=== PATIENT | male | born 1985 | race Caucasian/White ===

== ENCOUNTER 2020-01-25 07:37 | Outpatient (REF) | payer BC, SELFPAY ==
--- NOTE | 2020-01-25 07:50 | XR_ITS ---
EXAMINATION: XR ANKLE, RIGHT CLINICAL INFORMATION: Pain COMPARISON: None TECHNIQUE: AP, lateral, and mortise views of the right ankle. FINDINGS: Bone alignment is normal. No fracture or dislocation is seen. The ankle mortise is normal. There may be an ankle joint effusion. Soft tissues are otherwise unremarkable. XR/XR ankle RT min 3V IMPRESSION: Question ankle joint effusion otherwise unremarkable exam.
[2020-01-25 08:26] LABS: Estimated Average Glucose 97 mg/dL
[2020-01-25 09:28] LABS: Vitamin B12 214 pg/mL (200-900)
== END 2020-01-25 07:38 | disposition home or self-care (01) ==
LOC: HO.LAB 07:37
PROVIDERS: Visit Provider Internal Medicine
DX: R73.02 Impaired glucose tolerance (oral) (principal); M25.571 Pain in right ankle and joints of right foot; E53.8 Deficiency of other specified B group vitamins
CPT/HCPCS: 73610; 82607; 83036; 84550

== ENCOUNTER 2020-01-31 08:03 | Outpatient (REF) | payer BC, SELFPAY | END 2020-01-31 08:04 | disposition home or self-care (01) | LOC: HO.HMGCLDS 08:03 | PROVIDERS: PCP Internal Medicine; Visit Provider Internal Medicine | DX: Z20.828 Contact with and (suspected) exposure to other viral communicable diseases (principal) | CPT/HCPCS: C9803; U0003 ==

== ENCOUNTER 2020-02-14 09:10 | Outpatient (REF) | payer BC, SELFPAY | END 2020-02-14 09:11 | disposition home or self-care (01) | LOC: HO.HMGCLDS 09:10 | PROVIDERS: PCP Internal Medicine; Visit Provider Internal Medicine | DX: Z20.828 Contact with and (suspected) exposure to other viral communicable diseases (principal) | CPT/HCPCS: C9803; U0003 ==

== ENCOUNTER 2022-10-22 05:57 | Day surgery (SDC) | payer BC, SELFPAY ==
[2022-10-22] VITALS (9 sets, daily range): BP systolic 97–126; BP diastolic 50–78; PULSE 57–84; RESP 14–18; TEMP 36.3–36.7; O2SAT 96–100; BMI 25.6
--- NOTE | ~2022-10-22 | CT_ITS ---
EXAMINATION: CT ABDOMEN AND PELVIS WITH CONTRAST CLINICAL INFORMATION: Lower abdominal pain. COMPARISON: None available. TECHNIQUE: Multidetector volumetric images were obtained from the superior aspect of the liver through the pubic symphysis following administration 85 mL of Omnipaque 350 intravenous contrast. Sagittal and coronal reformatted images were obtained on the technologist's workstation. Oral contrast: No This CT examination was performed using dose optimization techniques as appropriate, variously including the following: *Automated exposure control *Adjustment of mA and/or kV according to patient size (this includes techniques or standardized protocols for targeted exams where dose is matched to indication/reason for exam; i.e. extremities or head) *Use of iterative reconstruction technique DLP: 537 mGy-cm FINDINGS: LUNG BASES: No pleural or pericardial effusion. LIVER, GALLBLADDER, AND BILIARY TREE: The liver is normal in size and contour. 1.6 cm hepatic cyst. No biliary ductal dilatation is present. The gallbladder is unremarkable with no evidence of radiopaque gallstones, gallbladder wall thickening, or obvious pericholecystic inflammatory changes. PANCREAS: No ductal dilatation. SPLEEN: Not enlarged. ADRENAL GLANDS: No adrenal masses. KIDNEYS AND URETERS: The kidneys are symmetric in size and enhancement. No hydronephrosis or perinephric stranding. BLADDER: Underdistended with perivesicular stranding. GASTROINTESTINAL TRACT: The appendix is dilated up to 10 mm. There is mild periappendiceal stranding. There is appendiceal wall thickening. A possible appendicolith is present. ABDOMINAL WALL: No significant hernia is appreciated. LYMPH NODES: No bulky abdominal or pelvic lymphadenopathy. VASCULAR: Normal caliber abdominal aorta. PELVIC VISCERA: The prostate gland and seminal vesicles are unremarkable. OSSEOUS STRUCTURES: No destructive bone lesions. CT/CT abdomen pelvis w IV con IMPRESSION: Findings most likely representing acute appendicitis. Surgical consultation is recommended. Perivesicular stranding. Advise correlation with urinalysis. Findings were reviewed and discussed with ROSAMARIA Varner at 8:45 AM on 10/22/2022.
[2022-10-22 06:20] LABS: MANUAL DIFF FLAG NO
[2022-10-22 06:21] LABS: Basophils Percent Auto 0.4 % (0-2); Eosinophils Percent Auto 0.3 % (0-4); Hemoglobin 14.7 g/dl (14.0-18.0); Imm Gran Abs Auto 0.03 X10*3/uL (0.00-0.03); Imm Gran Pct Auto 0.3 % (0.0-0.4); Lymphocytes Absolute Auto 1.1 X10*3/uL (1.2-4.9); Lymphocytes Percent Auto 11.3 % (20-40); Mean Corpuscular Hemoglobin 31.7 pg (27.0-33.0); Mean Corpuscular Volume 90.5 fL (80.0-98.0); Mean Platelet Volume 9.8 fL (9.4-12.4); Monocytes Absolute Auto 0.5 X10*3/uL (0.1-1.2); Neutrophils Absolute Auto 8.1 x10*3/uL (2.0-8.3); Neutrophils Percent Auto 82.7 % (45-73); Platelet Count 203 X10*3/uL (160-400); Red Blood Count 4.64 X10*6/uL (4.60-5.80); Red Cell Distribution Width 12.1 % (11.0-16.0); White Blood Count 9.7 X10*3/uL (4.8-10.8)
[2022-10-22 06:23] LABS: Appearance Urine Clear; Color Urine Yellow; Glucose Urine UA Negative (Negative); Leukocyte Esterase Urine Negative (Negative); Nitrite Urine Negative (Negative); PH 5.5 (5.0-9.0); Specific Gravity - Urine >= 1.030 (1.005-1.025); Urine Blood Negative (Negative); Urine Ketones Trace mg/dL (Negative); Urine Protein Negative (Neg-Trace)
[2022-10-22 06:36] LABS: Bacteria Urine None Seen (None Seen); Granular Casts Urine Present; RBC Urine 0-2 /HPF (0-2); Squamous Epithelial Cell Urine 0-2 /HPF (0-2); WBC Urine 0-5 /HPF (0-5)
[2022-10-22 06:37] LABS: Alanine Aminotransferase 39 U/L (0-40); Albumin Level 4.4 g/dL (3.5-5.0); Alkaline Phosphatase 81 U/L (39-117); Anion Gap 16 (12-20); Aspartate Amino Transferase 27 U/L (5-37); Bilirubin Direct 0.2 mg/dL (0.0-0.5); Bilirubin Total 0.5 mg/dL (0.0-1.0); Blood Urea Nitrogen 11 mg/dL (9-16); Calcium 9.4 mg/dL (8.4-10.2); Carbon Dioxide 22 mmol/L (22-29); Chloride 101 mmol/L (96-108); Creatinine Clr Calc Pharmacy 105.8; Estimated Glomerular Filt Rate > 60; Glucose Random 138 mg/dL (60-115); Lipase 10 U/L (8-78); Potassium 4.2 mmol/L (3.3-5.1); Sodium 135 mmol/L (135-145); Total Protein 7.5 g/dL (6.5-8.0)
--- NOTE | 2022-10-22 06:43 | ED.ABDPAIN ---
HPI - Abdominal Pain General Chief Complaint: Abdominal Pain Stated Complaint: severe abd pain Time Seen by Provider: 10/22/22 06:40 Source: patient Mode of arrival: ambulatory Limitations: no limitations History of Present Illness HPI narrative: 37-year-old male with no significant past medical history presents to the ED today with a complaint of N/V, bilateral lower abdominal pain and feeling bloated since 0700 last night, abdominal pain worse on the right. Endorses 2 episodes of nonbloody vomiting last night. States his pain is currently a 6/10. Last bowel movement was yesterday afternoon, loose stool. Patient tells me he has no appetite. Has not had these symptoms before. Denies sick contacts or history of abdominal surgeries. Denies fever, chills, melena, hematemesis, hematochezia, or urinary symptoms. Related Data Home Medications Medication Instructions Recorded Confirmed No Known Home Meds 05/28/21 05/28/21 Allergies Allergy/AdvReac Type Severity Reaction Status Date / Time amoxicillin Allergy Unknown hives Verified 10/22/22 06:05 penicillin V Allergy Unknown hives Verified 10/22/22 06:05 Review of Systems Review of Systems Constitutional : No Weight loss, No Fever, No Chills, No Fatigue ENT/Mouth : No sore throat, No Rhinorrhea Eyes: No Eye Pain, No Swelling, No Redness Cardiovascular : No Chest Pain, No SOB Respiratory : No Cough, No Sputum, No Wheezing Gastrointestinal : + Nausea, + Vomiting, + Diarrhea, No Constipation, + abdominal Pain, No Hematochezia, No Melena Genitourinary : No Dysuria, No Urinary Frequency, No Hematuria, Musculoskeletal : No joint pain, No Myalgias, No Joint Swelling Skin : No Skin Lesions, No rash Neuro : No Weakness, No Numbness, No Dizziness, No Headache All other systems reviewed and are negative Yes all other systems are reviewed and are negative [facility] Past Medical History Attestation statement: The following information was validated with the patient. Source: old records reviewed and nursing notes reviewed Medical History Deafness in right ear Leukopenia Surgical History History of removal of cyst Family History Family History Father Bladder cancer Depression Mother Crohn disease Maternal Grandfather COPD (chronic obstructive pulmonary disease) Maternal Grandmother Cancer Maternal Uncle Crohn disease Bicuspid aortic valve Brother In good health Son No problems noted. Son In good health Paternal Uncle Alcohol abuse Social History Social History Housing: Apartment Alcohol intake: current Alcohol intake frequency: a few times a month Alcohol type: beer Patient Tobacco Use Status: Never used Tobacco e-Cigarette/Vaping Use: Never Used Second Hand Smoke Exposure: No Advance Directives: No Advance Directives Information Provided: Yes Current occupational status: employed Physical Exam ED Vital Signs: Vital Signs - 24 hr 10/22/22 06:05 10/22/22 08:35 Temperature 97.8 F Pulse Rate 68 57 Respiratory Rate 17 17 Blood Pressure 126/78 112/60 Pulse Oximetry 96 99 Oxygen Delivery Method Room Air Room Air BMI result Body Mass Index 25.6 Appearance: Alert.? Oriented X3.? No acute distress.? Head: Normocephalic, atraumatic, no step-offs or deformities CVS: Normal heart rate and rhythm.? Pulses normal.? Respiratory: No respiratory distress.? Breath sounds normal.? Abdomen: Soft, nondistended, bilateral lower quadrants tender to palpation R>L, normal active bowel sounds throughout Skin: Skin warm and dry.? Normal skin color.? Normal skin turgor.? Extremities: No lower extremity edema.? No calf ttp. 5/5 strength to bilateral upper and lower extremities Back: No midline tenderness, no C-spine tenderness, full range of motion, no CVA tenderness bilaterally Neuro: Oriented X 3.? No motor deficit.? No sensory deficit. CN 2-12 intact Course Reevaluation(s) Reevaluation #1: CBC without leukocytosis. CMP unremarkable with normal lipase, unlikely pancreatitis, LFTs within normal limits. CT of the abdomen representing acute appendicitis. Surgical consult recommended, reached out surgeon on-call Dr. Greer. Perivesicular stranding, correlation with urinalysis recommended, urine pending. Time: 08:56 Reevaluation #2: UA without infection. Dr. Greer surgery here at the bedside to evaluate patient. Time: 09:39 Reevaluation #3: Dr. Greer surgery saw patient recommends antibiotics. Patient has an allergy to penicillins however he tells me that last time he had penicillin was a while ago and he just had a rash, no airway complaints. Will order ceftriaxone due to low cross sensitivity. Time: 09:51 Medical Decision Making Medical Decision Making [facility] Narrative: 37-year-old male with no significant past medical history presents to the ED today with a complaint of N/V, bilateral lower abdominal pain and feeling bloated since 0700 last night. Exam: lower abd tenderness R>L Plan: labs, CVT abd pelvis, pain control Clinical concern for intra-abdominal pathology, plan to order CT of the abdomen/pelvis to rule out appendicitis, small-bowel obstruction, IBS. Other differentials include cholecystitis, pancreatitis, gastritis, gastroenteritis an IBS although less likely. No signs of acute abdomen. Differential Diagnosis Differential Diagnoses: The differential diagnosis associated with the presentation includes Appendicitis, small-bowel obstruction, cholecystitis, pancreatitis, gastritis, gastroenteritis, IBS Admission/Observation Consideration of admission/observation: Escalation of care including admission/observation considered possible Consult Healthcare Provider Management of the patient was discussed with: [employer] Supervisor (surgery ) Lab Data MDM Lab Attestation statement: I reviewed the patient's lab results. CBC without leukocytosis or anemia. CMP with normal renal and liver function, no electrolyte derangements. 10/22/22 06:14 10/22/22 06:14 Labs: Lab Results 10/22/22 10/22/22 10/22/22 Range/Units 06:14 06:14 06:14 WBC 9.7 (4.8-10.8) X10*3/uL RBC 4.64 (4.60-5.80) X10*6/uL Hgb 14.7 (14.0-18.0) g/dl Hct 42.0 (42.0-52.0) % MCV 90.5 (80.0-98.0) fL MCH 31.7 (27.0-33.0) pg MCHC 35.0 (31.0-36.0) g/dl RDW 12.1 (11.0-16.0) % Plt Count 203 (160-400) X10*3/uL MPV 9.8 (9.4-12.4) fL Immature Gran % (Auto) 0.3 (0.0-0.4) % Neut % (Auto) 82.7 H (45-73) % Lymph % (Auto) 11.3 L (20-40) % [place] % (Auto) 5.0 (2-11) % Eos % (Auto) 0.3 (0-4) % Baso % (Auto) 0.4 (0-2) % Lymph # (Auto) 1.1 L (1.2-4.9) X10*3/uL [place] # (Auto) 0.5 (0.1-1.2) X10*3/uL Eos # (Auto) 0.0 (0.0-0.4) X10*3/uL Baso # (Auto) 0.0 (0.0-0.2) X10*3/uL Abs Immat Gran (auto) 0.03 (0.00-0.03) X10*3/uL Absolute Neuts (auto) 8.1 (2.0-8.3) x10*3/uL Absolute Nucleated RBC 0.000 (0.0-0.012) X10*3/uL Nucleated RBC % (auto) 0.0 (0.0-0.2) /100WBC PT (11.1-13.3) SEC INR (0.9-1.1) Sodium 135 (135-145) mmol/L Potassium 4.2 (3.3-5.1) mmol/L Chloride 101 (96-108) mmol/L Carbon Dioxide 22 (22-29) mmol/L Anion Gap 16 (12-20) BUN 11 (9-16) mg/dL Creatinine 1.15 (0.5-1.4) mg/dL Estim Creat Clear Calc 105.8 Estimated GFR > 60 Random Glucose 138 H (60-115) mg/dL Calcium 9.4 (8.4-10.2) mg/dL Total Bilirubin 0.5 (0.0-1.0) mg/dL Direct Bilirubin 0.2 (0.0-0.5) mg/dL AST 27 (5-37) U/L ALT 39 (0-40) U/L Alkaline Phosphatase 81 (39-117) U/L Total Protein 7.5 (6.5-8.0) g/dL Albumin 4.4 (3.5-5.0) g/dL Lipase 10 (8-78) U/L Urine Color Yellow Urine Appearance Clear Urine pH 5.5 (5.0-9.0) Ur Specific [place] >= 1.030 H (1.005-1.025) Urine Protein Negative (Neg-Trace) mg/dL Urine Glucose (UA) Negative (Negative) mg/dL Urine Ketones Trace (Negative) mg/dL Urine Blood Negative (Negative) Urine Nitrite Negative (Negative) Ur Leukocyte Esterase Negative (Negative) Urine RBC 0-2 (0-2) /HPF Urine WBC 0-5 (0-5) /HPF Ur Squamous Epith Cells 0-2 (0-2) /HPF Urine Bacteria None Seen (None Seen) Hyaline Casts 11-20 (0-2) /LPF Granular Casts Present 10/22/22 10/22/22 Range/Units 09:12 09:20 WBC (4.8-10.8) X10*3/uL RBC (4.60-5.80) X10*6/uL Hgb (14.0-18.0) g/dl Hct (42.0-52.0) % MCV (80.0-98.0) fL MCH (27.0-33.0) pg MCHC (31.0-36.0) g/dl RDW (11.0-16.0) % Plt Count (160-400) X10*3/uL MPV (9.4-12.4) fL Immature Gran % (Auto) (0.0-0.4) % Neut % (Auto) (45-73) % Lymph % (Auto) (20-40) % [place] % (Auto) (2-11) % Eos % (Auto) (0-4) % Baso % (Auto) (0-2) % Lymph # (Auto) (1.2-4.9) X10*3/uL [place] # (Auto) (0.1-1.2) X10*3/uL Eos # (Auto) (0.0-0.4) X10*3/uL Baso # (Auto) (0.0-0.2) X10*3/uL Abs Immat Gran (auto) (0.00-0.03) X10*3/uL Absolute Neuts (auto) (2.0-8.3) x10*3/uL Absolute Nucleated RBC (0.0-0.012) X10*3/uL Nucleated RBC % (auto) (0.0-0.2) /100WBC PT 11.7 (11.1-13.3) SEC INR 1.0 (0.9-1.1) Sodium (135-145) mmol/L Potassium (3.3-5.1) mmol/L Chloride (96-108) mmol/L Carbon Dioxide (22-29) mmol/L Anion Gap (12-20) BUN (9-16) mg/dL Creatinine (0.5-1.4) mg/dL Estim Creat Clear Calc Estimated GFR Random Glucose (60-115) mg/dL Calcium (8.4-10.2) mg/dL Total Bilirubin (0.0-1.0) mg/dL Direct Bilirubin (0.0-0.5) mg/dL AST (5-37) U/L ALT (0-40) U/L Alkaline Phosphatase (39-117) U/L Total Protein (6.5-8.0) g/dL Albumin (3.5-5.0) g/dL Lipase (8-78) U/L Urine Color Yellow Urine Appearance Clear Urine pH 5.5 (5.0-9.0) Ur Specific [place] >= 1.030 H (1.005-1.025) Urine Protein Negative (Neg-Trace) mg/dL Urine Glucose (UA) Negative (Negative) mg/dL Urine Ketones Negative (Negative) mg/dL Urine Blood Negative (Negative) Urine Nitrite Negative (Negative) Ur Leukocyte Esterase Negative (Negative) Urine RBC (0-2) /HPF Urine WBC (0-5) /HPF Ur Squamous Epith Cells (0-2) /HPF Urine Bacteria (None Seen) Hyaline Casts (0-2) /LPF Granular Casts Core Measures AMI core measures followed: Yes Measure exclusions: not indicated Medications Administered Discontinued Medications Generic Name Dose Route Start Last Admin Trade Name Freq PRN Reason Stop Dose Admin Belladonna Alkaloids/Phenobarbital 10 ml 10/22/22 06:52 10/22/22 07:32 Phenobarb/Hyoscy/Atropine/Scop 10 Ml Elixir PO 10/22/22 06:53 10 ml ONCE ONE Administration Iohexol 85 ml 10/22/22 07:29 10/22/22 07:30 Iohexol 350 Mg/Ml 100 Ml Infus..Btl IV 10/22/22 07:30 85 ml ONCE ONE Administration Simethicone 80 mg 10/22/22 06:55 10/22/22 07:32 Simethicone 80 Mg Tab.Chew PO 10/22/22 06:56 80 mg ONCE ONE Administration Critical Care Time Critical Care Time Critical Care Time: Yes Total Critical Care Time: 35 Attestation: I attest to this time spent taking care of the patient, obtaining history, physical, reviewing labs, imaging, speaking to my attending, speaking to specialist. Discharge Plan Discharge Clinical Impression: Acute appendicitis Patient Disposition: Still a Patient Prescriptions: No Action No Known Home Meds
[2022-10-22] MEDS: iohexoL 350 MG/ML 100 ML INFUS..BTL 85 ML IV (07:30)
[2022-10-22] MEDS: Simethicone 80 MG TAB.CHEW PO (07:32)
[2022-10-22] MEDS: PHENobarb/Hyoscy/Atropine/Scop 10 ML ELIXIR PO (07:32)
--- NOTE | 2022-10-22 09:03 | PC.NURSE ---
patient states his last meal was aprox 1800 10/21, patient changed over into hospital gown. 20# IV in the right FA
[2022-10-22 09:30] LABS: Appearance Urine Clear; Color Urine Yellow; Glucose Urine UA Negative (Negative); Leukocyte Esterase Urine Negative (Negative); Nitrite Urine Negative (Negative); PH 5.5 (5.0-9.0); Specific Gravity - Urine >= 1.030 (1.005-1.025); Urine Blood Negative (Negative); Urine Ketones Negative (Negative); Urine Protein Negative (Neg-Trace)
[2022-10-22 09:47] LABS: Prothrombin Time 11.7 SEC (11.1-13.3)
--- NOTE | 2022-10-22 09:53 | HO.ANESPROP2 ---
HPI - Anesthesia Eval Consult details Narrative: to [facility] Active Problems Active Problems: All Active Problems (Updated 10/22/22 @ 08:57 by ROSAMARIA Marroquin) Acute appendicitis (Acute) Deafness in right ear (Acute) COVID-19 virus infection (Acute) Multiple nevi (Acute) Annual physical exam (Acute) Ankle pain, right (Acute) Impaired glucose tolerance (Acute) Vitamin B12 deficiency (Acute) Past Medical History Medical History Deafness in right ear Leukopenia Family History Family History Father Bladder cancer Depression Mother Crohn disease Maternal Grandfather COPD (chronic obstructive pulmonary disease) Maternal Grandmother Cancer Maternal Uncle Crohn disease Bicuspid aortic valve Brother In good health Son No problems noted. Son In good health Paternal Uncle Alcohol abuse Family history of problems with anesthesia: No Surgical History Surgical History History of removal of cyst History of Problems with Anesthesia: No Social History Social History Housing: Apartment Alcohol intake: current Alcohol intake frequency: a few times a month Alcohol type: beer Patient Tobacco Use Status: Never used Tobacco e-Cigarette/Vaping Use: Never Used Second Hand Smoke Exposure: No Advance Directives: No Advance Directives Information Provided: Yes Current occupational status: employed Meds Allergies Allergy/AdvReac Type Severity Reaction Status Date / Time amoxicillin Allergy Unknown hives Verified 10/22/22 06:05 penicillin V Allergy Unknown hives Verified 10/22/22 06:05 Active Medications: Current Medications Clindamycin Phosphate (Cleocin) 900 mg in 50 mls @ 50 mls/hr IV PREOP ONE Stop: 10/22/22 10:01 Ceftriaxone Sodium 1 gm/ (Sodium Chloride) 50 mls @ 100 mls/hr IV ONCE ONE Stop: 10/22/22 10:19 Pharmacy Consult (Consult Rx Perform Med Rec) 1 each MISCELLANE ONCE PRN PRN Reason: Consult order Home Medications Medication Instructions Recorded Confirmed Last Taken Type No Known Home Meds 03/03/22 03/03/22 Unknown History Exam Exam Date and Time: October 22, 2022 0953 Height,Weight and Vital Signs: Height 6 ft 4 in Weight 95.254 kg Last Vital Signs Temp 97.8 F 10/22/22 06:05 Pulse 57 10/22/22 08:35 Resp 17 10/22/22 08:35 BP 112/60 10/22/22 08:35 Pulse Ox 99 10/22/22 08:35 O2 Del Method Room Air 10/22/22 08:35 Pertinent Lab Results Pertinent Lab Results: Laboratory Tests 10/22/22 10/22/22 10/22/22 06:14 06:14 06:14 WBC 9.7 RBC 4.64 Hgb 14.7 Hct 42.0 MCV 90.5 MCH 31.7 MCHC 35.0 RDW 12.1 Plt Count 203 MPV 9.8 Immature Gran % (Auto) 0.3 Neut % (Auto) 82.7 H Lymph % (Auto) 11.3 L [place] % (Auto) 5.0 Eos % (Auto) 0.3 Baso % (Auto) 0.4 Lymph # (Auto) 1.1 L [place] # (Auto) 0.5 Eos # (Auto) 0.0 Baso # (Auto) 0.0 Abs Immat Gran (auto) 0.03 Absolute Neuts (auto) 8.1 Absolute Nucleated RBC 0.000 Nucleated RBC % (auto) 0.0 PT INR Sodium 135 Potassium 4.2 Chloride 101 Carbon Dioxide 22 Anion Gap 16 BUN 11 Creatinine 1.15 Estim Creat Clear Calc 105.8 Estimated GFR > 60 Random Glucose 138 H Calcium 9.4 Total Bilirubin 0.5 Direct Bilirubin 0.2 AST 27 ALT 39 Alkaline Phosphatase 81 Total Protein 7.5 Albumin 4.4 Lipase 10 Urine Color Yellow Urine Appearance Clear Urine pH 5.5 Ur Specific [place] >= 1.030 H Urine Protein Negative Urine Glucose (UA) Negative Urine Ketones Trace Urine Blood Negative Urine Nitrite Negative Ur Leukocyte Esterase Negative Urine RBC 0-2 Urine WBC 0-5 Ur Squamous Epith Cells 0-2 Urine Bacteria None Seen Hyaline Casts 11-20 Granular Casts Present 10/22/22 10/22/22 09:12 09:20 WBC RBC Hgb Hct MCV MCH MCHC RDW Plt Count MPV Immature Gran % (Auto) Neut % (Auto) Lymph % (Auto) [place] % (Auto) Eos % (Auto) Baso % (Auto) Lymph # (Auto) [place] # (Auto) Eos # (Auto) Baso # (Auto) Abs Immat Gran (auto) Absolute Neuts (auto) Absolute Nucleated RBC Nucleated RBC % (auto) PT 11.7 INR 1.0 Sodium Potassium Chloride Carbon Dioxide Anion Gap BUN Creatinine Estim Creat Clear Calc Estimated GFR Random Glucose Calcium Total Bilirubin Direct Bilirubin AST ALT Alkaline Phosphatase Total Protein Albumin Lipase Urine Color Yellow Urine Appearance Clear Urine pH 5.5 Ur Specific [place] >= 1.030 H Urine Protein Negative Urine Glucose (UA) Negative Urine Ketones Negative Urine Blood Negative Urine Nitrite Negative Ur Leukocyte Esterase Negative Urine RBC Urine WBC Ur Squamous Epith Cells Urine Bacteria Hyaline Casts Granular Casts Airway Mallampati Class: II TM Dist: >3cm Neck ROM: Full Heart: rrr Lungs: cta Assessment and Plan Assessment Anesthesia Assessment: Anesthesia Plan Discussed and Chart Reviewed Final Anesthetic Review Family History of Problems with Anesthesia: No History of Problems with Anesthesia: No NPO: Yes ASA Class: II Final Preanesthetic Review: No Changes in Pt Med Stat, Meds/Allgs Chart Reviewed, Consent Obtained/Reviewed and Anes Risks/Benef Reviewed Patient Risk: Low Procedure Risk: Intermediate Anesthetic Plan Anesthetic Plan: GA and Agree w/ Assess. and Plan Disposition: Standard PACU
[2022-10-22] MEDS: 0.9 % Sodium Chloride 1,000 ML 999 ML IV (10:17)
[2022-10-22] MEDS: cefTRIAXone sodium 1 GM in 0.9 % Sodium Chloride 50 ML IV (10:18)
--- NOTE | 2022-10-22 10:19 | P.HPGS_ITS ---
History of Present Illness History of Present Illness Date of Service: 10/22/22 Chief complaint: severe abd pain Narrative: Jarrod Goodrich is a 37 year old male who presents initially of nonspecific epigastric discomfort which has progressed right lower quadrant pain. Disc commenced yesterday evening. Because of persistence of right lower quadrant pain, per patient came to the ER for further evaluation. Chart was reviewed patient evaluated. CT scan consistent with acute appendic itis Very healthy man with no significant medical comorbidities. [facility] Past Medical History Medical History Deafness in right ear Leukopenia Family History Family History Father Bladder cancer Depression Mother Crohn disease Maternal Grandfather COPD (chronic obstructive pulmonary disease) Maternal Grandmother Cancer Maternal Uncle Crohn disease Bicuspid aortic valve Brother In good health Son No problems noted. Son In good health Paternal Uncle Alcohol abuse Surgical History Surgical History History of removal of cyst Social History Social History Housing: Apartment Alcohol intake: current Alcohol intake frequency: a few times a month Alcohol type: beer Patient Tobacco Use Status: Never used Tobacco e-Cigarette/Vaping Use: Never Used Second Hand Smoke Exposure: No Advance Directives: No Advance Directives Information Provided: Yes Current occupational status: employed Meds Allergies Allergy/AdvReac Type Severity Reaction Status Date / Time amoxicillin Allergy Unknown hives Verified 10/22/22 06:05 penicillin V Allergy Unknown hives Verified 10/22/22 06:05 Active Medications: Current Medications Hydromorphone HCl (Hydromorphone Hcl 0.5 Mg/0.5 Ml Syringe) 0.25 mg IVPUSH Q5M PRN; Protocol PRN Reason: Pain, Severe (Pain Scale 7-10) Sodium Chloride (Ns) 1,000 mls @ 999 mls/hr IV .Q1H1M JOEY Stop: 10/22/22 11:00 Sodium Chloride (Ns) 1,000 mls @ 999 mls/hr IV .Q1H1M JOEY Stop: 10/22/22 11:00 Pharmacy Consult (Consult Rx Perform Med Rec) 1 each MISCELLANE ONCE PRN PRN Reason: Consult order Home Medications Medication Instructions Recorded Confirmed Last Taken Type No Known Home Meds 05/28/21 05/28/21 Unknown History Physical Exam Vital Signs: Vital Signs: Last Vital Signs Temp 97.8 F 10/22/22 06:05 Pulse 57 10/22/22 08:35 Resp 17 10/22/22 08:35 BP 112/60 10/22/22 08:35 Pulse Ox 99 10/22/22 08:35 O2 Del Method Room Air 10/22/22 08:35 BMI result Body Mass Index 25.6 Chest: Other: Chest breath sounds bilaterally, HS 1 in 2 GI: Other: Abdomen soft, marked right lower quadrant tenderness, localized rebound. Results Results Labs: Short CBC 10/22/22 Range/Units 06:14 WBC 9.7 (4.8-10.8) X10*3/uL Hgb 14.7 (14.0-18.0) g/dl Hct 42.0 (42.0-52.0) % Plt Count 203 (160-400) X10*3/uL BMP 10/22/22 06:14 Sodium 135 Potassium 4.2 Chloride 101 Carbon Dioxide 22 BUN 11 Creatinine 1.15 Calcium 9.4 Liver Function 10/22/22 Range/Units 06:14 Total Bilirubin 0.5 (0.0-1.0) mg/dL Direct Bilirubin 0.2 (0.0-0.5) mg/dL AST 27 (5-37) U/L ALT 39 (0-40) U/L Alkaline Phosphatase 81 (39-117) U/L Albumin 4.4 (3.5-5.0) g/dL Urine 10/22/22 10/22/22 Range/Units 06:14 09:20 Urine Color Yellow Yellow Urine Appearance Clear Clear Urine pH 5.5 5.5 (5.0-9.0) Ur Specific [place] >= 1.030 H >= 1.030 H (1.005-1.025) Urine Protein Negative Negative (Neg-Trace) mg/dL Urine Glucose (UA) Negative Negative (Negative) mg/dL Assessment and Plan (1) Acute appendicitis: Status: Acute Plan Risks, benefits, alternatives of laparoscopic possible open cholecystectomy reviewed the patient included but not limited to bleeding, infection, numbness, pain, scarring, bowel or bladder injury or leak and the patient wishes to proceed. All questions were answered. Patient will be an add on case for this morning. Consent was signed. Time Spent With Patient Time: Total time managing care of this patient today ____ minutes. Quality Stroke Does the patient have a stroke diagnosis?: No VTE Prior VTE?: No VTE Risk Level:: Surgical - low VTE Device Contraindication: Treatment Not Indicated VTE Drug Contraindication: Treatment Not Indicated Procedures Date of Service Date of Service: 10/22/22
--- NOTE | 2022-10-22 10:33 | PHA.MEDREC ---
Pharmacy Consult ? Medication Reconciliation Pharmacy has completed the medication reconciliation. Spoke to patient to confirm meds.
--- NOTE | 2022-10-22 10:39 | PC.NURSE ---
patient left ED to go to OR
[2022-10-22 11:21] LABS: Reflex Lactate? Lactic Acid Added
[2022-10-22 12:37] LABS: Lactic Acid 3.2 mmol/L (0.5-2.0)
--- NOTE | 2022-10-22 12:46 | W.PM.OPN ---
Operative Note Operative Note Date of Service: 10/22/22 Narrative: Preoperative diagnosis: [] Acute appendicitis, incarcerated umbilical hernia Postop diagnosis: [] Same Procedure [] laparoscopic appendectomy, primary repair of incarcerated umbilical hernia Surgeon: [] Percy Textile Machine Operator: [] Type of Anesthesia: [] General Indication for surgery: [] Edematous inflamed appendix. No gross evidence of perforation. Retrocecal position. Umbilical hernia measuring approximately 2 cm defect, With incarcerated omentum Findings: [] Patient brought to the operating room, placed on operative table in supine position, after adequate level of general anesthesia was induced, under sterile technique, Pelletier catheter was placed in the patient's abdomen was prepped and draped in usual sterile fashion. Using a supraumbilical curvilinear incision, Elena technique was used to insufflate the abdominal cavity by 1st identifying the umbilical hernia sac and dissecting this off the posterior aspect of the umbilicus. Dissection was carried down to the fascia where the sac was opened and sac and omentum were amputated using Bovie. Fascia margins were cleared and stay sutures of 0 Vicryl placed and Elena technique was used to insufflated the abdominal cavity to 15 mm of CO2. Lower midline and suprapubic ports were placed under direct laparoscopic view, and the patient placed in Trendelenburg position, and tilted to the left. Findings were as noted above. Retrocecal appendix was identified and grasped and brought onto the field. Its mesentery was taken down usual double firing of ligature device. Appendix was then transected at the cecal base using endoscopic HOLLY stapler. Specimen was placed in an Endo-Catch bag, a retrieved through the umbilical port. The abdominal cavity was copiously irrigated and secured hemostasis. All ports were removed under direct laparoscopic view. Wounds were closed in the following manner; umbilical wound which is site of the incarcerated umbilical hernia was closed primarily using interrupted 0 Vicryl sutures. Skin wounds were closed using subcuticular 4-0 Vicryl sutures followed by Steri-Strips and sterile dressings. Wounds were infiltrated 0.5% Marcaine at completion. Sponge, needle, instrument counts reported correct. Patient tolerated the procedure well and emerged anesthesia in stable condition. EBL minimal
== END 2022-10-22 14:00 | disposition home or self-care (01) ==
LOC: HO.ED 10:39 → HO.SSS 10:44
PROVIDERS: Surgery; Emergency Provider Emergency Medicine Emergency Medical Services; PCP Internal Medicine; Visit Provider Physician Assistant
PROC: 0DTJ4ZZ Resection of Appendix, Percutaneous Endoscopic Approach (ICD-10-PCS; CPT 44970; principal; 2022-10-22 11:30)
DX: K42.0 Umbilical hernia with obstruction, without gangrene (principal); K35.80 Unspecified acute appendicitis; R73.02 Impaired glucose tolerance (oral); E53.8 Deficiency of other specified B group vitamins; D72.819 Decreased white blood cell count, unspecified; H91.91 Unspecified hearing loss, right ear; Z86.16 Personal history of COVID-19; Z88.0 Allergy status to penicillin
CPT/HCPCS: 49592; 44970; 36415; 74177; 80048; 80076; 81001; 81003; 83605; 83690; 85025; 85610; 87040; 88304; 99285; J0131; J0696; J1100; J1885; J2405; J2795; J3010; Q9967

== ENCOUNTER → 2022-10-22 06:35 | Outpatient (BNV) | payer BC, SELFPAY | PROVIDERS: Emergency Provider Emergency Medicine Emergency Medical Services; PCP Internal Medicine; Visit Provider Surgery | DX: K35.80 Unspecified acute appendicitis (principal) | CPT/HCPCS: 44970; 99223 ==

== ENCOUNTER 2022-11-10 14:24 | Outpatient (AMB) | payer BC, SELFPAY ==
[2022-11-10 14:26] VITALS: BP 120/72; PULSE 59; O2SAT 99; BMI 26.2
--- NOTE | 2022-11-10 14:26 | MHC.PC.OV ---
Vital Signs 11/10/22 14:26 Height 6 ft 4 in Weight 215 lb BMI 26.2 BP 120/72 Blood Pressure Location Lt brachial Position Sitting Pulse 59 Pulse Source Pulse Oximeter Temp Source Skin Pulse Oximetry (%) 99 Oxygen Delivery Method Room Air Intake [place] Re[place] [facility] Intake Note: Patient is here for hospital discharge follow up. 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 Allergies amoxicillin Allergy (Unknown, Verified 11/10/22 14:35) hives penicillin V Allergy (Unknown, Verified 11/10/22 14:35) hives Medication List - Last Reconciled 11/10/22 by MARITZA Berry ibuprofen 400 mg PO Q8H PRN simethicone 160 mg PO TIDWM PRN Tobacco use date assessed: 11/10/22 Dental Screening Dental Screen Date: 11/10/22 Did you have a dental visit in the last 12 months?: Yes Did you have a dental problem in the last 6 months where you did not have access to dental care?: No [place]PI [facility] HPI Details Patient is a 37-year-old male who presents today to follow-up after [facility] visit 10/22/22 due to abdominal pain. Patient of Dr. Calzada. Abdominal CT with acute appendicitis, patient did have appendectomy by Dr. Greer 10/22/2022 and he was discharged home the same day. Today, patient denies fever, chills, nausea/vomiting, diarrhea/constipation, no blood in stool, tolerating foods and fluids well, no abdominal pain. Denies concerns at this visit. [facility] Medical History Deafness in right ear Leukopenia Umbilical hernia (10/22/22) Surgical History (Updated 11/10/22 @ 14:57 by MARITZA Berry) History of laparoscopic appendectomy (10/22/22) History of removal of cyst Family History Father Bladder cancer Depression Mother Crohn disease Maternal Grandfather COPD (chronic obstructive pulmonary disease) Maternal Grandmother Cancer Maternal Uncle Crohn disease Bicuspid aortic valve Brother In good health Son No problems noted. Son In good health Paternal Uncle Alcohol abuse Social History Housing: Apartment Alcohol intake: current Alcohol intake frequency: a few times a month Alcohol type: beer Patient Tobacco Use Status: Never used Tobacco e-Cigarette/Vaping Use: Never Used Second Hand Smoke Exposure: No Current occupational status: employed Cognitive needs: No Hearing needs: No Vision needs: No Questionnaire PHQ-9 Over the last 2 weeks, how often have you been bothered by any of the following problems? 1. Little interest or pleasure in doing things: not at all 2. Feeling down, depressed, or hopeless: not at all 3. Trouble falling or staying asleep, or sleeping too much: not at all 4. Feeling tired or having little energy: not at all 5. Poor appetite or overeating: not at all 6. Feeling bad about yourself - or that you are a failure or have let yourself or your family down: not at all 7. Trouble concentrating on things, such as reading the newspaper or watching television: not at all 8. Moving or speaking so slowly that other people could have noticed. Or the opposite - being so fidgety or restless that you have been moving around a lot more than usual: not at all 9. Thoughts that you would be better off or of hurting yourself in some way: not at all Total score: 0 Depression Screening Interpretation: Negative 52107 - PHQ-9 Billing: Yes Source: Developed by Drs. Honorio Nathan, Marcela Valdez, Simone Moss and colleagues, with an educational violeta from [employer]. Thrive Questionnaire Date Thrive assessed: 11/10/22 I am a: Patient What is your living situation today?: I have a steady place to live Within the past 12 months, did the food you bought not last and you didn't have the money to get more?: Never true Within the past 12 months, did you worry whether your food would run out before you got money to buy more?: Never true Currently or been in a relationship where the following occur: no concerns reported AUDIT C Alcohol Use Questionnaire (AUDIT-C) 1. How often do you have a drink containing alcohol?: 2-3 times a week 2. How many drinks containing alcohol do you have on a typical day when you are drinking?: 3 or 4 3. How often do you have six or more drinks on one occasion?: Never Total Score: 4 Score Reviewed/Action Taken: Yes JOHN-7 AMB Questionnaire JOHN-7 Date JOHN - 7 assessed: 11/10/22 Feeling nervous, anxious, or on edge: 0 = Not at all Not being able to stop or control worryin = Not at all Worrying too much about different things: 0 = Not at all Trouble relaxin = Not at all Being so restless that it is hard to sit still: 0 = Not at all Becoming easily annoyed or irritable: 0 = Not at all Feeling afraid as if something awful might happen: 0 = Not at all Total JOHN-7 score (0-4 normal; 5-9 mild; 10-14 moderate; 15-21 severe): 0 Source: Developed by Drs. Honorio Nathan, Marcela Valdez, Simone Moss and colleagues, with an educational violeta from [employer]. JOHN-7 Assessment Billing JOHN-7 Assessment Tool: JOHN-7 Assessment 35880 Review of Systems Const Denies body aches, Denies chills, Denies fever(s) and Denies headache(s) Eyes Denies change in vision ENT Denies dizziness, Denies otalgia, Denies headache(s), Denies nasal discharge, Denies sinus pain and Denies sore throat Card Denies chest pain, Denies edema, Denies lightheadedness and Denies dyspnea Resp Denies cough, Denies dyspnea and Denies wheezing GI Denies abdominal pain, Denies constipation, Denies diarrhea, Denies nausea and Denies vomiting Denies dysuria Musc Denies myalgias Skin/Breast Denies rash Neuro Denies dizziness and Denies headache(s) Aller/Immun Denies wheezing Physical exam (Primary Care) Vital Signs: Last Vital Signs Pulse 59 11/10/22 14:26 BP 120/72 11/10/22 14:26 Pulse Ox 99 11/10/22 14:26 Oxygen Delivery Method Room Air 11/10/22 14:26 BMI result Body Mass Index 26.2 Tobacco/Smoking Status: Tobacco use Status Tobacco use date assessed 11/10/22 11/10/22 14:33 Patient Tobacco Use Status Never used Tobacco 11/10/22 14:33 e-Cigarette/Vaping Use Never Used 11/10/22 14:33 PHQ-9: PHQ-9 Score PHQ-9: Total score 0 11/10/22 14:39 Depression Screening Interpretation: Negative Thrive Assessment: Date of Thrive Assessment Date Thrive assessed 11/10/22 11/10/22 14:33 Currently or been in a relationship where the following occur: no concerns reported Const General: cooperative and no acute distress Orientation/consciousness: patient oriented x3 HENMT Head: Yes normocephalic and Yes atraumatic Face and sinus: Yes sinuses nontender Mouth: oropharynx normal and moist mucous membranes Throat: Yes posterior oropharynx normal Eyes General: appearance normal, both eyes and all related structures Neck Neck: Yes normal visual inspection, Yes full ROM and Yes no lymphadenopathy Resp Effort & Inspection: normal respiratory effort and able to speak in complete sentences Auscultation: clear to auscultation bilaterally, no crackles, no rales, no rhonchi and no wheezes Cardio Rate: regular rate Rhythm: regular rhythm Heart sounds: S1 normal heart sound present, S2 normal heart sound present and no murmurs Peripheral pulses: radial pulses present GI Other: Abdomen with 3 surgical incisions with Steri-Strips, no signs of infection noted Palpation (GI): Soft to palpation, not firm, nontender, no guarding and not rigid Auscultation: normal bowel sounds Skin General skin exam: no rashes or lesions noted Neuro General: patient oriented x3 Gait exam (Neuro): Normal gait present Extrem General: Yes full ROM and No edema Assessment and Plan Assessment & Plan (1) History of laparoscopic appendectomy: Onset Date: 10/22/22 Comment: Dr. José Luis Greer Code(s): Z90.49 - Acquired absence of other specified parts of digestive tract Plan: Abdominal incisions healing well. Patient denies any symptoms today. Denies any concerns. Patient has an upcoming appointment with Dr. Greer tomorrow for a follow-up. Patient will see PCP in 4 months for physical exam. Coding Level of Care Code Est Pt Level 3 (88845) Diagnoses History of laparoscopic appendectomy Z90.49 Additional Codes JOHN-7 Assessment Billing - JOHN-7 Assessment Tool: JOHN-7 Assessment [id number] ([id number])
== END 2022-11-10 14:48 | disposition home or self-care (01) ==
PROVIDERS: PCP Internal Medicine; Visit Provider Nurse Practitioner Family
DX: Z90.49 Acquired absence of other specified parts of digestive tract (principal)
CPT/HCPCS: 99213

== ENCOUNTER 2022-11-11 08:23 | Outpatient (AMB) | payer BC, SELFPAY ==
[2022-11-11 08:43] VITALS: BP 141/70; PULSE 68; BMI 25.8
--- NOTE | 2022-11-11 08:43 | MHC.OFFVIS ---
Intake Vital Signs 11/11/22 08:43 Height 6 ft 4 in Weight 212 lb BMI 25.8 BP 141/70 H Blood Pressure Location Rt brachial Position Sitting Pulse 68 Intake Visit Reasons: s/p lap appy Intake Note: Patient here s/p appendicitis and umbilical hernia. Reports incisions healing well. Denies bleeding, tenderness, itch. No longer taking rx pain meds. 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 He is doing well. Signer diabetes are normal bowel habits. He has no incisional discomfort. He is increasing his activity level. [facility] Medical History Deafness in right ear Leukopenia Umbilical hernia (10/22/22) Surgical History History of laparoscopic appendectomy (10/22/22) History of removal of cyst Family History Father Bladder cancer Depression Mother Crohn disease Maternal Grandfather COPD (chronic obstructive pulmonary disease) Maternal Grandmother Cancer Maternal Uncle Crohn disease Bicuspid aortic valve Brother In good health Son No problems noted. Son In good health Paternal Uncle Alcohol abuse Social History Housing: Apartment Alcohol intake: current Alcohol intake frequency: a few times a month Alcohol type: beer Patient Tobacco Use Status: Never used Tobacco e-Cigarette/Vaping Use: Never Used Second Hand Smoke Exposure: No Current occupational status: employed Cognitive needs: No Hearing needs: No Vision needs: No Physical Exam Vital Signs: Last Vital Signs Pulse 68 11/11/22 08:43 BP 141/70 H 11/11/22 08:43 BMI result Body Mass Index 25.8 GI Other: Abdomen soft. Wound clean dry and intact. Assessment & Plan Assessment & Plan (1) History of laparoscopic appendectomy: Onset Date: 10/22/22 Comment: Dr. José Luis Greer Code(s): Z90.49 - Acquired absence of other specified parts of digestive tract Plan Patient has been given local instructions, and will follow-up p.r.n. Coding Level of Care Code Global (21847) Diagnoses History of laparoscopic appendectomy Z90.49
== END 2022-11-11 08:54 | disposition home or self-care (01) ==
PROVIDERS: PCP Internal Medicine; Visit Provider Surgery
DX: Z90.49 Acquired absence of other specified parts of digestive tract (principal)
CPT/HCPCS: 99024

== ENCOUNTER → 2022-11-11 08:23 | Outpatient (BNVA) | payer BC, SELFPAY | PROVIDERS: PCP Internal Medicine; Visit Provider Surgery ==

== ENCOUNTER 2023-03-22 09:10 | Outpatient (AMB) | payer BC, SELFPAY ==
[2023-03-22 09:11] VITALS: BP 116/78; PULSE 77; O2SAT 98; BMI 25.7
--- NOTE | 2023-03-22 09:11 | A.OFFPC_ITS ---
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 Accompanied by: Self / Same As Patient Allergies amoxicillin Allergy (Unknown, Verified 03/22/23 09:11) hives penicillin V Allergy (Unknown, Verified 03/22/23 09:11) hives Medication List - Last Reconciled 03/22/23 by Ananda Calzada MD Tobacco use date assessed: 11/10/22 Dental Screening Dental Screen Date: 03/22/23 Did you have a dental visit in the last 12 months?: Yes Did you have a dental problem in the last 6 months where you did not have access to dental care?: No Was dental information given to patient?: Patient has dentist HPI 4 month f/u HPI Details 37-year-old male with impaired glucose t olerance coming in wanting physical exam to done today. May 2021 last seen for physical exam. Review of the note in September 2022 had lap appendectomy. concern on anal hemorrhoids PFSH Medical History Deafness in right ear Leukopenia Umbilical hernia (10/22/22) Surgical History History of laparoscopic appendectomy (10/22/22) History of removal of cyst Family History (Updated 03/22/23 @ 09:51 by Ananda Calzada MD) Father Bladder cancer Depression Mother Crohn disease Macular degeneration Maternal Grandfather COPD (chronic obstructive pulmonary disease) Maternal Grandmother Cancer Maternal Uncle Crohn disease Bicuspid aortic valve Brother In good health Son No problems noted. Son In good health Paternal Uncle Alcohol abuse Social History (Updated 03/22/23 @ 09:52 by Ananda Calzada MD) Housing: Apartment Alcohol intake: current Alcohol intake frequency: a few times a month Alcohol type: beer Comment: 2-3 drinks beer a day Patient Tobacco Use Status: Never used Tobacco e-Cigarette/Vaping Use: Never Used Second Hand Smoke Exposure: No Current occupational status: employed Cognitive needs: No Hearing needs: No Vision needs: No Questionnaire Thrive Questionnaire Date Thrive assessed: 11/10/22 JOHN-7 AMB Questionnaire JOHN-7 Date JOHN - 7 assessed: 11/10/22 Source: Developed by Drs. Honorio Nathan, Marcela Valdez, Simone Moss and colleagues, with an educational violeta from [employer]. Review of Systems Const Denies poor appetite and Denies weakness Eyes Denies no additional complaints ENT Reports Normal hearing present, Denies dizziness, Denies nasal congestion, Denies tinnitus and Denies sore throat Card Denies chest pain, Denies syncope, Denies rapid heart rate and Denies dyspnea Resp Denies cough and Denies dyspnea GI Denies change in stool character, Reports constipation, Denies diarrhea, Denies nausea and Denies vomiting Denies dysuria and Denies urinary frequency Neuro Reports Normal hearing present, Denies confusion, Denies dizziness, Denies syncope and Denies weakness Psych Denies confusion Physical exam (Primary Care) Vital Signs: Last Vital Signs Pulse 77 03/22/23 09:11 BP 116/78 03/22/23 09:11 Pulse Ox 98 03/22/23 09:11 Oxygen Delivery Method Room Air 03/22/23 09:11 BMI result Body Mass Index 25.7 Tobacco/Smoking Status: Tobacco use Status Tobacco use date assessed 11/10/22 03/22/23 09:15 Patient Tobacco Use Status Never used Tobacco 03/22/23 09:52 e-Cigarette/Vaping Use Never Used 03/22/23 09:52 Thrive Assessment: Date of Thrive Assessment Date Thrive assessed 11/10/22 03/22/23 09:15 Const General: alert; No acute distress or confusion Orientation/consciousness: No confusion HENMT Head: Yes normocephalic Ears: external ears normal and TM's normal bilaterally Face and sinus: Yes normal facial exam Mouth: moist mucous membranes Throat: Yes tonsils normal Eyes Conjunctivae: conjunctivae normal Pupils: Equal, round and reactive pupils present and Pupil accommodation reflex normal Direct Ophthalmoscopy: normal light reflex Neck Neck: No lymphadenopathy Thyroid: Thyroid normal Chest Chest palpation & inspection: normal inspection of the chest Resp Effort & Inspection: normal respiratory effort and no audible wheezes Auscultation: clear to auscultation bilaterally Cardio Rate: regular rate Rhythm: regular rhythm Peripheral pulses: radial pulses present and dorsalis pedis present GI Other: hemorrhoid noted Inspection: Yes normal to inspection Palpation (GI): no masses Auscultation: normal bowel sounds and normoactive bowel sounds Rectal Exam - Male: Yes deferred Skin General skin exam: no rashes or lesions noted Rashes: no rashes Neuro General: deep tendon reflexes 2+ bilaterally and No confusion Cranial nerves: Yes Equal, round and reactive pupils present, Yes Midline tongue present, Yes Normal hearing present and Yes Ability to bilaterally elevate shoulders present Cognition (Neuro): normal cognition Gait exam (Neuro): Normal gait present Motor exam (neuro): 5/5 motor strength present throughout Deep tendon reflexes (DTR's): Right brachioradialis reflex intensity grade: 2+, Left brachioradialis reflex intensity grade: 2+, Right patellar reflex intensity grade: 2+ and Left patellar reflex intensity grade: 2+ Extrem General: Yes normal to inspection and No edema Assessment and Plan Assessment & Plan (1) History of laparoscopic appendectomy: Onset Date: 10/22/22 Comment: Dr. José Luis Greer Code(s): Z90.49 - Acquired absence of other specified parts of digestive tract Plan: September 2022 (2) Impaired glucose tolerance: Code(s): R73.02 - Impaired glucose tolerance (oral) Plan: Decrease the amount of carbohydrate intake, pasta, bread, rice and potatoes are all sugar and that is aside from all the sweet stuff, remember that fruits are good but they are Sweet also. (3) Annual physical exam: Code(s): Z00.00 - Encounter for general adult medical examination without abnormal findings (4) Hemorrhoid: Code(s): K64.9 - Unspecified hemorrhoids Plan: monitor for now and avoid gfetting constipated Coding Level of Care Code Est Pt Prev Care 18-39y(04739) Diagnoses History of laparoscopic appendectomy Z90.49 Impaired glucose tolerance R73.02 Annual physical exam Z00.00 Hemorrhoid K64.9
== END 2023-03-22 10:06 | disposition home or self-care (01) ==
PROVIDERS: PCP Internal Medicine; Visit Provider Internal Medicine
DX: Z90.49 Acquired absence of other specified parts of digestive tract (principal); R73.02 Impaired glucose tolerance (oral); Z00.00 Encounter for general adult medical examination without abnormal findings; K64.9 Unspecified hemorrhoids
CPT/HCPCS: 99395

== ENCOUNTER 2023-06-29 09:59 | Outpatient (AMB) | payer BC, SELFPAY ==
[2023-06-29 10:06] VITALS: BP 108/74; PULSE 60; O2SAT 98; BMI 25.7
--- NOTE | 2023-06-29 10:06 | MHC.PC.OV ---
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 Allergies amoxicillin Allergy (Unknown, Verified 06/29/23 10:07) hives penicillin V Allergy (Unknown, Verified 06/29/23 10:07) hives Tobacco use date assessed: 06/29/23 Dental Screening Dental Screen Date: 06/29/23 HPI Swollen Right Foot HPI Details 37-year-old male with a history of impaired glucose tolerance last seen in February 2023 having history of laparoscopic appendectomy coming in for an acute problem.05/16 R lateral ankle swelling - used brace [facility] Medical History Deafness in right ear Leukopenia Umbilical hernia (10/22/22) Surgical History History of laparoscopic appendectomy (10/22/22) History of removal of cyst Family History (Updated 03/22/23 @ 09:51 by Ananda Calzada MD) Father Bladder cancer Depression Mother Crohn disease Macular degeneration Maternal Grandfather COPD (chronic obstructive pulmonary disease) Maternal Grandmother Cancer Maternal Uncle Crohn disease Bicuspid aortic valve Brother In good health Son No problems noted. Son In good health Paternal Uncle Alcohol abuse Social History (Updated 03/22/23 @ 09:52 by Ananda Calzada MD) Housing: Apartment Alcohol intake: current Alcohol intake frequency: a few times a month Alcohol type: beer Comment: 2-3 drinks beer a day Patient Tobacco Use Status: Never used Tobacco e-Cigarette/Vaping Use: Never Used Second Hand Smoke Exposure: No Current occupational status: employed Cognitive needs: No Hearing needs: No Vision needs: No Questionnaire Thrive Questionnaire Date Thrive assessed: 06/29/23 AUDIT C Alcohol Use Questionnaire (AUDIT-C) 1. How often do you have a drink containing alcohol?: 2-3 times a week 2. How many drinks containing alcohol do you have on a typical day when you are drinking?: 3 or 4 3. How often do you have six or more drinks on one occasion?: Never Total Score: 4 Score Reviewed/Action Taken: Yes JOHN-7 AMB Questionnaire JOHN-7 Date JOHN - 7 assessed: 06/29/23 Source: Developed by Drs. Honorio Nathan, Marcela Valdez, Simone Moss and colleagues, with an educational violeta from [employer]. Physical exam (Primary Care) Vital Signs: Last Vital Signs Pulse 60 06/29/23 10:06 BP 108/74 06/29/23 10:06 Pulse Ox 98 06/29/23 10:06 Oxygen Delivery Method Room Air 06/29/23 10:06 BMI result Body Mass Index 25.7 Tobacco/Smoking Status: Tobacco use Status Tobacco use date assessed 06/29/23 06/29/23 10:15 Patient Tobacco Use Status Never used Tobacco 06/29/23 10:15 e-Cigarette/Vaping Use Never Used 06/29/23 10:15 Thrive Assessment: Date of Thrive Assessment Date Thrive assessed 06/29/23 06/29/23 10:15 Const General: alert; No acute distress Eyes Conjunctivae: conjunctivae normal Resp Auscultation: clear to auscultation bilaterally Cardio Rate: regular rate Rhythm: regular rhythm GI Inspection: Yes normal to inspection Extrem Other: Right ankle lateral no tenderness on palpation no swelling noted, right big toe medial area with mild swelling and redness. General: Yes edema Assessment and Plan Assessment & Plan (1) Gout: Code(s): M10.9 - Gout, unspecified Plan: increase oral fluids, low purine diet (2) Great toe pain: Code(s): M79.676 - Pain in unspecified toe(s) Plan: X-ray requested discussed the concerns on gout and anti-inflammatory prescription sent in. (3) Ankle pain, right: Code(s): M25.571 - Pain in right ankle and joints of right foot Qualifiers: Chronicity: acute Qualified Code(s): M25.571 - Pain in right ankle and joints of right foot Plan: X-ray of the right ankle requested. Orders: Orders XR foot RT 2V Today M79.676 - Pain in unspecified toe(s) XR ankle RT 2V Today M25.571 - Pain in right ankle and joints of right foot Uric Acid Today M79.676 - Pain in unspecified toe(s) Complete Blood Count Auto Diff Today M79.676 - Pain in unspecified toe(s) Comprehensive Met. Panel Today M79.676 - Pain in unspecified toe(s) Medications: New indomethacin administer with food or milk 50 mg PO BID 14 caps 0RF M79.676 - Pain in unspecified toe(s) Coding Level of Care Code Est Pt Level 3 (73925) Diagnoses Gout M10.9 Great toe pain M79.676 Acute right ankle pain M25.571 Chronicity: acute
== END 2023-06-29 11:00 | disposition home or self-care (01) ==
PROVIDERS: PCP Internal Medicine; Visit Provider Internal Medicine
DX: M10.9 Gout, unspecified (principal); M79.676 Pain in unspecified toe(s); M25.571 Pain in right ankle and joints of right foot
CPT/HCPCS: 99213

== ENCOUNTER 2023-06-29 11:03 | Outpatient (REF) | payer BC, SELFPAY ==
--- NOTE | ~2023-06-29 | XR_ITS ---
EXAMINATION: XR ANKLE, RIGHT XR FOOT, RIGHT CLINICAL INFORMATION: Pain. COMPARISON: None available. TECHNIQUE: AP, lateral, and mortise views of the right ankle. AP, lateral, and oblique views of the right foot. FINDINGS: Bony alignment and mineralization are normal. The ankle mortise is intact. No fracture, dislocation or right ankle joint effusion is seen. Boehler's angle is normal. There is no calcaneal spur. There is very mild bunion formation of the first metatarsal head. No focal soft tissue swelling, gas or foreign body is seen. XR/XR foot RT 2V IMPRESSION: There is very mild bunion formation. The examination is otherwise unremarkable.
--- NOTE | ~2023-06-29 | XR_ITS ---
EXAMINATION: XR ANKLE, RIGHT XR FOOT, RIGHT CLINICAL INFORMATION: Pain. COMPARISON: None available. TECHNIQUE: AP, lateral, and mortise views of the right ankle. AP, lateral, and oblique views of the right foot. FINDINGS: Bony alignment and mineralization are normal. The ankle mortise is intact. No fracture, dislocation or right ankle joint effusion is seen. Boehler's angle is normal. There is no calcaneal spur. There is very mild bunion formation of the first metatarsal head. No focal soft tissue swelling, gas or foreign body is seen. XR/XR ankle RT 2V IMPRESSION: There is very mild bunion formation. The examination is otherwise unremarkable.
[2023-06-29 11:35] LABS: MANUAL DIFF FLAG NO
[2023-06-29 12:19] LABS: Basophils Percent Auto 0.6 % (0-2); Eosinophils Absolute Auto 0.1 X10*3/uL (0.0-0.4); Eosinophils Percent Auto 1.2 % (0-4); Hematocrit 45.3 % (42.0-52.0); Hemoglobin 15.5 g/dl (14.0-18.0); Imm Gran Abs Auto 0.01 X10*3/uL (0.00-0.03); Imm Gran Pct Auto 0.2 % (0.0-0.4); Lymphocytes Absolute Auto 1.4 X10*3/uL (1.2-4.9); Mean Corpuscular HGB Conc 34.2 g/dl (31.0-36.0); Mean Corpuscular Volume 90.6 fL (80.0-98.0); Monocytes Absolute Auto 0.4 X10*3/uL (0.1-1.2); Monocytes Percent Auto 7.2 % (2-11); Neutrophils Percent Auto 61.8 % (45-73); Platelet Count 227 X10*3/uL (160-400); Red Cell Distribution Width 12.3 % (11.0-16.0); White Blood Count 4.9 X10*3/uL (4.8-10.8)
[2023-06-29 12:53] LABS: Alanine Aminotransferase 35 U/L (0-40); Albumin Level 4.4 g/dL (3.5-5.0); Alkaline Phosphatase 90 U/L (39-117); Anion Gap 11 (12-20); Aspartate Amino Transferase 21 U/L (5-37); Bilirubin Total 0.5 mg/dL (0.0-1.0); Blood Urea Nitrogen 11 mg/dL (9-16); Calcium 9.9 mg/dL (8.4-10.2); Carbon Dioxide 30 mmol/L (22-29); Chloride 103 mmol/L (96-108); Estimated Glomerular Filt Rate > 60; Glucose Random 93 mg/dL (60-115); Potassium 4.2 mmol/L (3.3-5.1); Sodium 140 mmol/L (135-145); Uric Acid 9.4 mg/dL (3.4-7.0)
== END 2023-06-29 11:04 | disposition home or self-care (01) ==
LOC: HO.LAB 11:03
PROVIDERS: PCP Internal Medicine; Visit Provider Internal Medicine
DX: M25.571 Pain in right ankle and joints of right foot (principal); M21.611 Bunion of right foot; M79.674 Pain in right toe(s)
CPT/HCPCS: 36415; 73600; 73620; 80053; 84550; 85025; 86900; 86901

== ENCOUNTER 2024-04-02 08:45 | Outpatient (AMB) | payer BC, SELFPAY ==
[2024-04-02 08:50] VITALS: BP 122/78; PULSE 58; O2SAT 99; BMI 25.7
--- NOTE | 2024-04-02 08:50 | MHC.PC.OV ---
Vital Signs 04/02/24 08:50 Height 6 ft 4 in Weight 211 lb BMI 25.7 BP 122/78 Blood Pressure Location Lt brachial Position Sitting Pulse 58 Pulse Source Pulse Oximeter Pulse Oximetry (%) 99 Oxygen Delivery Method Room Air Intake Visit Reasons: pe Allergies amoxicillin Allergy (Unknown, Verified 04/02/24 08:51) hives penicillin V Allergy (Unknown, Verified 04/02/24 08:51) hives Tobacco use date assessed: 04/02/24 Dental Screening Dental Screen Date: 04/02/24 Did you have a dental visit in the last 12 months?: Yes Did you have a dental problem in the last 6 months where you did not have access to dental care?: No Was dental information given to patient?: Patient has dentist HPI pe HPI Details The patient is a 38-year-old male presenting with a history of impaired glucose tolerance, gout, and general wellness concerns. The patient reports occasional discomfort in the foot related to gout, not characterized by pain but more by discomfort. No past events of falls have been associated. Most recent blood work indicated elevated uric acid levels, attributed primarily to dietary intake, particularly from consumption of high-protein foods and alcohol. The patient has a known allergy to penicillin and amoxicillin, developed during childhood, characterized by hives and rashes. 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 The patient underwent an appendectomy in 2022, noted as the only surgical history. There is a family history of bladder cancer in the father. The patient denies any recent surgery or new diagnosis since the last visit. 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 - Alcohol consumption reported as one to two times per week, predominantly with meals - Denies use of cigarettes or recreational drug use, although reports occasional use of gummies for relaxation - Comprehensive discussion on the importance of hydration and diet to manage gout - General: Denies fever, dizziness, nausea, or vomiting - Cardiovascular: Denies chest pain or discomfort - Respiratory: Denies shortness of breath - Gastrointestinal: Denies constipation; reports normal bowel movements - Genitourinary: Denies nighttime urination issues - Neurologic: Denies passing out episodes - Oral: Denies swallowing difficulties or coughing while eating - Labs: Recent blood work showed elevated uric acid levels [facility] Medical History (Updated 04/02/24 @ 08:55 by Ananda Calzada MD) Umbilical hernia (10/22/22) Deafness in right ear Leukopenia Surgical History (Updated 04/02/24 @ 09:00 by Ananda Calzada MD) History of laparoscopic appendectomy (10/22/22) History of removal of cyst Family History (Updated 03/22/23 @ 09:51 by Ananda Calzada MD) Father Bladder cancer Depression Mother Crohn disease Macular degeneration Maternal Grandfather COPD (chronic obstructive pulmonary disease) Maternal Grandmother Cancer Maternal Uncle Crohn disease Bicuspid aortic valve Brother In good health Son No problems noted. Son In good health Paternal Uncle Alcohol abuse Social History (Updated 04/02/24 @ 09:03 by Ananda Calzada MD) Housing: Apartment Alcohol intake: current Alcohol intake frequency: a few times a month Alcohol type: beer Comment: 2- drinks beer 1-2 x a week Patient Tobacco Use Status: Never used Tobacco Tobacco use type: Cigarette e-Cigarette/Vaping Use: Never Used Second Hand Smoke Exposure: No Current occupational status: employed Cognitive needs: No Hearing needs: No Vision needs: No Questionnaire PHQ-9 Over the last 2 weeks, how often have you been bothered by any of the following problems? 1. Little interest or pleasure in doing things: not at all 2. Feeling down, depressed, or hopeless: not at all 3. Trouble falling or staying asleep, or sleeping too much: not at all 4. Feeling tired or having little energy: not at all 5. Poor appetite or overeating: not at all 6. Feeling bad about yourself - or that you are a failure or have let yourself or your family down: not at all 7. Trouble concentrating on things, such as reading the newspaper or watching television: not at all 8. Moving or speaking so slowly that other people could have noticed. Or the opposite - being so fidgety or restless that you have been moving around a lot more than usual: not at all 9. Thoughts that you would be better off or of hurting yourself in some way: not at all Total score: 0 Source: Developed by Drs. Honorio Nathan, Marcela Valdez, Simone Moss and colleagues, with an educational violeta from [employer]. Thrive Questionnaire Date Thrive assessed: 04/02/24 I am a: Patient What is your living situation today?: I have a steady place to live Within the past 12 months, did the food you bought not last and you didn't have the money to get more?: Never true Within the past 12 months, did you worry whether your food would run out before you got money to buy more?: Never true Do you have trouble paying for medicines?: No Do you have trouble getting transportation to medical appointments?: No Do you have trouble paying your heating and electricity bill?: No Do you have trouble taking care of your child, family member or friend?: No Do you have trouble with day-to-day activities such as bathing, preparing meals, shopping, managing finances, etc.?: No Are you currently unemployed and looking for a job?: No Are you interested in more education?: No Please select the resources that you would like help with: None Currently or been in a relationship where the following occur: No concerns reported THRIVE Score: 0 AUDIT C Alcohol Use Questionnaire (AUDIT-C) 1. How often do you have a drink containing alcohol?: 2-4 times a month 2. How many drinks containing alcohol do you have on a typical day when you are drinking?: 1 or 2 3. How often do you have six or more drinks on one occasion?: Less than monthly Total Score: 3 JOHN-7 AMB Questionnaire JOHN-7 Date JOHN - 7 assessed: 04/02/24 Feeling nervous, anxious, or on edge: 0 = Not at all Not being able to stop or control worryin = Not at all Worrying too much about different things: 0 = Not at all Trouble relaxin = Not at all Being so restless that it is hard to sit still: 0 = Not at all Becoming easily annoyed or irritable: 0 = Not at all Feeling afraid as if something awful might happen: 0 = Not at all Total JOHN-7 score (0-4 normal; 5-9 mild; 10-14 moderate; 15-21 severe): 0 Source: Developed by Drs. Honorio Nathan, Marcela Valdez, Simone Moss and colleagues, with an educational violeta from [employer]. Review of Systems Const Denies poor appetite and Denies weakness Eyes Denies no additional complaints ENT Reports Normal hearing present, Denies dizziness, Denies nasal congestion, Denies tinnitus and Denies sore throat Card Denies chest pain, Denies syncope, Denies rapid heart rate and Denies dyspnea Resp Denies cough and Denies dyspnea GI Denies change in stool character, Reports constipation, Denies diarrhea, Denies nausea and Denies vomiting Denies dysuria and Denies urinary frequency Neuro Reports Normal hearing present, Denies confusion, Denies dizziness, Denies syncope and Denies weakness Psych Denies confusion Physical exam (Primary Care) Vital Signs: Oxygen Delivery Method Room Air 04/02/24 08:50 BMI result Body Mass Index 25.7 Tobacco/Smoking Status: Tobacco use Status Tobacco use date assessed 06/29/23 06/29/23 10:15 Patient Tobacco Use Status Never used Tobacco 06/29/23 10:15 e-Cigarette/Vaping Use Never Used 06/29/23 10:15 Thrive Assessment: Date of Thrive Assessment Date Thrive assessed 06/29/23 06/29/23 10:15 Currently or been in a relationship where the following occur: No concerns reported Const General: No confusion Orientation/consciousness: No confusion HENMT Head: Yes normocephalic Ears: external ears normal and TM's normal bilaterally Face and sinus: Yes normal facial exam Mouth: moist mucous membranes Throat: Yes tonsils normal Eyes Conjunctivae: conjunctivae normal Pupils: Equal, round and reactive pupils present and Pupil accommodation reflex normal Direct Ophthalmoscopy: normal light reflex Neck Neck: No lymphadenopathy Thyroid: Thyroid normal Chest Chest palpation & inspection: normal inspection of the chest Resp Effort & Inspection: normal respiratory effort and no audible wheezes Auscultation: clear to auscultation bilaterally, no crackles, no wheezes and lung sounds not diminished Cardio Rate: regular rate Rhythm: regular rhythm Peripheral pulses: radial pulses present and dorsalis pedis present GI Other: rectal visual exam negative Palpation (GI): no masses Auscultation: normal bowel sounds and normoactive bowel sounds Rectal Exam - Male: Yes deferred Male General Exam: Yes normal external exam Skin General skin exam: no rashes or lesions noted Rashes: no rashes Neuro General: No confusion Cranial nerves: Yes Equal, round and reactive pupils present and Yes Normal hearing present Cognition (Neuro): normal cognition Gait exam (Neuro): Normal gait present Motor exam (neuro): 5/5 motor strength present throughout Deep tendon reflexes (DTR's): Right brachioradialis reflex intensity grade: 2+, Left brachioradialis reflex intensity grade: 2+, Right patellar reflex intensity grade: 2+ and Left patellar reflex intensity grade: 2+ Extrem General: No edema Coding Level of Care Code Est Pt Prev Care 40-64y([id number]) Diagnoses Annual physical exam Z00.00 Impaired glucose tolerance R73.02 Vitamin B12 deficiency E53.8 Other secondary gout of right foot, 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 (2) Impaired glucose tolerance: Code(s): R73.02 - Impaired glucose tolerance (oral) Category: Medical Plan: Decrease the amount of carbohydrate intake, pasta, bread, rice and potatoes are all sugar and that is aside from all the sweet stuff, remember that fruits are good but they are Sweet also. (3) Vitamin B12 deficiency: Code(s): E53.8 - Deficiency of other specified B group vitamins Category: Medical Plan: Vitamin B12 1000 mcg once a day (4) Gout: Code(s): M10.9 - Gout, unspecified Category: Medical Qualifiers: Chronicity: unspecified Gout etiology: other secondary cause Gout site: foot Laterality: right Qualified Code(s): M10.471 - Other secondary gout, right ankle and foot Plan: Well hydrated and low purine diet Plan - Continue monitoring uric acid levels; recommend dietary modifications to reduce intake of high-protein foods - Encourage moderation in alcohol consumption to aid in managing gout symptoms - Discussed the possibility of referral to an state director for further evaluation of penicillin allergy, if needed in future - Reassure regarding the 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 I advised the patient to avoid high-protein foods and alcohol, which can exacerbate gout. We revisited the side effects and management of penicillin allergy. Further discussion on preventative measures were undertaken, focusing on immunizations and hydration. Given kidney sensitivity, we advised preference for Acetaminophen over NSAIDs for pain management. The patient was counseled on the significant impact of consistent exercise and diet on overall wellness. No changes in medications or new interventions were proposed at this time. - Continue a balanced diet low in high-protein foods and alcohol to manage gout. - Maintain regular hydration, aiming for at least six to eight glasses of water daily. - Consider obtaining a flu vaccine during this season. - For mild pain, opt for Acetaminophen instead of NSAIDs to protect kidney function. 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 - Monitor any changes in symptoms or new symptoms and report promptly if they arise. - Schedule follow-ups regularly or seek immediate care if experiencing unusual symptoms.
== END 2024-04-02 09:14 | disposition home or self-care (01) ==
PROVIDERS: PCP Internal Medicine; Visit Provider Internal Medicine
DX: Z00.00 Encounter for general adult medical examination without abnormal findings (principal); R73.02 Impaired glucose tolerance (oral); E53.8 Deficiency of other specified B group vitamins; M10.471 Other secondary gout, right ankle and foot